=== PATIENT | female | born 1930 | race Caucasian/White ===

== ENCOUNTER 2017-01-04 15:00 | Outpatient (CLI) | payer MEDICARE, OTHER ==
[2016-05-15 20:05] VITALS: BP 191/94
--- NOTE | 2017-01-04 15:45 | Diagnostic Imaging Report ---
RANDY MATOS [facility] [id number] [facility] [address] [place], [place]. [address] Report Submission Date: January 04, 2017 3:30:48 PM CDT Patient Study Name: KANE COLMENARES Date: January 04, 2017 3:07:03 PM CDT Modality Type: CT\SR Gender: F Description: CT BRAIN W/O CONTRAST : 34 Institution: [facility] Physician: RANDY MATOS CT brain History: HEADACHES. PT STATES SHE SAW STARS AND DANCING LIGHTS ON WEDNESDAY Multiple axial images of the brain are submitted with reconstructions Findings: No comparison studies No evidence of acute intracranial hemorrhage. No midline shift. Cerebral atrophy Periventricular hypodensities suggestive small vessel ischemic disease Paranasal air sinuses and mastoid air cells are well aerated Impression: No evidence of acute intracranial hemorrhage. No midline shift. No hydrocephalus Cerebral atrophy and extensive periventricular small vessel ischemic disease Electronically signed on January 04, 2017 3:30:48 PM CDT by: Olga BELL
== END 2017-01-04 15:02 ==
LOC: RAD 15:00
PROVIDERS: ATTEND Family Medicine
DX: R51 Headache (principal)
CPT/HCPCS: 70450